=== PATIENT | female | born 1940 | race Two or more races ===

== ENCOUNTER 2017-12-26 10:45 | Outpatient (CLI) | payer OTHER | END 2017-12-26 10:52 | disposition home or self-care (01) | LOC: RAD 501 10:45 | DX: M20.41 Other hammer toe(s) (acquired), right foot (principal); M20.42 Other hammer toe(s) (acquired), left foot ==

== ENCOUNTER 2018-02-27 13:16 | Outpatient (CLI) | payer OTHER | END 2018-02-27 14:08 | disposition home or self-care (01) | LOC: MAMO-SONO 13:16 | DX: Z12.31 Encounter for screening mammogram for malignant neoplasm of breast (principal); Z87.898 Personal history of other specified conditions; N60.11 Diffuse cystic mastopathy of right breast; N60.12 Diffuse cystic mastopathy of left breast; R10.9 Unspecified abdominal pain; M81.0 Age-related osteoporosis without current pathological fracture; R05 Cough ==

== ENCOUNTER 2018-08-11 07:54 | Outpatient (CLI) | payer OTHER | END 2018-08-11 08:00 | disposition home or self-care (01) | LOC: LAB 07:54 | DX: I10 Essential (primary) hypertension (principal); E11.9 Type 2 diabetes mellitus without complications; E03.8 Other specified hypothyroidism; E78.2 Mixed hyperlipidemia; K92.1 Melena; M81.0 Age-related osteoporosis without current pathological fracture; N39.0 Urinary tract infection, site not specified; R82.79 Other abnormal findings on microbiological examination of urine ==

== ENCOUNTER 2018-08-11 09:53 | Outpatient (CLI) | payer OTHER | END 2018-08-11 10:08 | disposition home or self-care (01) | LOC: NUCLEAR 09:53 | DX: D68.8 Other specified coagulation defects (principal); I87.2 Venous insufficiency (chronic) (peripheral) ==

== ENCOUNTER 2018-08-14 10:47 | Outpatient (CLI) | payer OTHER | END 2018-08-14 10:55 | disposition home or self-care (01) | LOC: LAB 10:47 | DX: I10 Essential (primary) hypertension (principal); E11.9 Type 2 diabetes mellitus without complications; E03.8 Other specified hypothyroidism; E78.2 Mixed hyperlipidemia; K92.1 Melena; D64.89 Other specified anemias; M81.0 Age-related osteoporosis without current pathological fracture; N39.0 Urinary tract infection, site not specified ==

== ENCOUNTER 2019-11-07 13:46 | Outpatient (CLI) | payer OTHER | END 2019-11-07 14:13 | disposition home or self-care (01) | LOC: NUCLEAR 13:46 | DX: M81.0 Age-related osteoporosis without current pathological fracture (principal); Z12.31 Encounter for screening mammogram for malignant neoplasm of breast; N60.11 Diffuse cystic mastopathy of right breast; N60.12 Diffuse cystic mastopathy of left breast; N64.4 Mastodynia; R05 Cough; R10.9 Unspecified abdominal pain; G43.009 Migraine without aura, not intractable, without status migrainosus; I65.8 Occlusion and stenosis of other precerebral arteries; C71.8 Malignant neoplasm of overlapping sites of brain; E04.1 Nontoxic single thyroid nodule; I82.523 Chronic embolism and thrombosis of iliac vein, bilateral ==

== ENCOUNTER 2019-11-07 15:14 | Outpatient (CLI) | payer OTHER | END 2019-11-07 15:22 | disposition home or self-care (01) | LOC: MAMO-SONO 15:14 | DX: Z12.31 Encounter for screening mammogram for malignant neoplasm of breast (principal); Z87.898 Personal history of other specified conditions; M81.0 Age-related osteoporosis without current pathological fracture; N60.11 Diffuse cystic mastopathy of right breast; N60.12 Diffuse cystic mastopathy of left breast; N64.4 Mastodynia; R05 Cough; R10.84 Generalized abdominal pain; G43.001 Migraine without aura, not intractable, with status migrainosus; I65.9 Occlusion and stenosis of unspecified precerebral artery; C71.9 Malignant neoplasm of brain, unspecified; E04.1 Nontoxic single thyroid nodule; I82.529 Chronic embolism and thrombosis of unspecified iliac vein ==